=== PATIENT | female | born 1985 | race Hispanic/Latino ===

== ENCOUNTER 2018-12-08 01:49 | Emergency (ER) | payer OTHER ==
[~2018-12-08] VITALS: Ht 154.9 cm; Wt 58.1 kg
--- NOTE | 2018-12-08 03:13 | Diagnostic Imaging Report ---
History: Fall, after but are more hit by car door. Comparison studies:None Technique: Axial images were obtained to the vertex and maxillofacial region. Coronal and sagittal images reconstructed from the axial data. Intravenous contrast: None Dose modulation, iterative reconstruction, and/or weight based adjustment of the mA/kV was utilized to reduce the radiation dose to as low as reasonably achievable. Findings: Scalp/skull: No abnormalities. No fractures, blastic or lytic lesions. Extra-axial spaces: No masses. No fluid collections. Brain sulci: Appropriate for age. Ventricles: Normal in size and configuration. No hydrocephalus. Parenchyma: No abnormal densities. No masses, hemorrhage, acute or chronic cortical vascular insults. Sellar/suprasellar region: No abnormalities Craniocervical junction: Patent foramen magnum. No Chiari one malformation. Maxillofacial CT: Soft tissues: Soft tissue swelling of the nasal bridge Bones: Bilateral comminuted nasal bone fracture Left nasal septum. Orbits: Globes: Intact Extra or intraconal abnormalities: None. Paranasal sinuses: Focal mucosal thickening of the right maxillary sinus. The remaining sinuses are clear. Incidental findings: Mild degenerative changes of the bilateral TMJs Impression: Head CT: 1. No abnormality Maxillofacial CT: 1. Acute bilateral nasal bone fracture with adjacent soft tissue swelling Signed by: DR Jabari Worrell M.D. on 12/08/2018 3:10 AM
== END 2018-12-08 03:50 | disposition home or self-care (01) ==
LOC: FSED 01:49
DX: S00.33XA Contusion of nose, initial encounter (principal); S02.2XXA Fracture of nasal bones, initial encounter for closed fracture; V09.20XA Pedestrian injured in traffic accident involving unspecified motor vehicles, initial encounter; Y92.410 Unspecified street and highway as the place of occurrence of the external cause; J45.909 Unspecified asthma, uncomplicated
CPT/HCPCS: 70450; 70486; 99283